=== PATIENT | female | born 1970 | race Two or more races ===

== ENCOUNTER 2016-12-31 13:44 | Emergency (ER) | payer OTHER ==
[~2016-12-31] VITALS: Ht 162.6 cm; Wt 71.7 kg
[2016-12-31 14:37] VITALS: BP 110/69
== END 2016-12-31 15:28 | disposition home or self-care (01) ==
LOC: ER 13:46
DX: M25.511 Pain in right shoulder (principal)
CPT/HCPCS: A4606; J1100; J1885; Z7610

== ENCOUNTER 2017-04-08 12:25 | Emergency (ER) | payer OTHER ==
[~2017-04-08] VITALS: Ht 162.6 cm; Wt 72.6 kg
[2017-04-08 12:54] VITALS: BP 104/66
[2017-04-08] MEDS ORDERED: IBUPROFEN 400 MG TABLET ONE (13:10)
[2017-04-08] MEDS ORDERED: IBUPROFEN 400 MG TABLET PO ONE (13:30)
== END 2017-04-08 13:15 | disposition home or self-care (01) ==
LOC: ER 12:30
DX: M54.5 Low back pain (principal); M25.511 Pain in right shoulder; Z88.8 Allergy status to other drugs, medicaments and biological substances; V49.59XA Passenger injured in collision with other motor vehicles in traffic accident, initial encounter; Y93.89 Activity, other specified; Y92.413 State road as the place of occurrence of the external cause; Y99.8 Other external cause status
CPT/HCPCS: A4606; Z7610